=== PATIENT | male | born 1965 | race Two or more races ===

== ENCOUNTER 2024-12-17 05:27 | Emergency (ER) | payer OTHER ==
[~2024-12-17] VITALS: Ht 162.6 cm; Wt 83.0 kg
[2024-12-17] MEDS ORDERED: NEURONTIN300 MG (05:45)
[2024-12-17] MEDS ORDERED: MELOXICAM7.5 MG (05:45)
[2024-12-17] MEDS ORDERED: LACTOBACILLUS ACIDOPHILUS 1 CAP CAP PO STA (06:58)
[2024-12-17] MEDS ORDERED: HYOSCYAMINE SULFATE 0.125 MG TAB.SUBL SL ONE (07:00)
[2024-12-17] MEDS ORDERED: 0.9 % SODIUM CHLORIDE 1,000 ML IV ONE (07:00)
[2024-12-17 07:44] LABS: BASO % 0.4 % (0.1-1.2); EOS # 0.11 (0.04-0.54); EOS % 2.1 % (0.7-7.0); LYMPH # 2.59 (1.18-3.74); LYMPH % 49.7 % (19.3-53.1); MEAN PLATELET VOLUME 10.40 fl (9.4-12.4); MONO # 0.85 (0.24-0.82); NEUT # 1.63 (1.56-6.13); NEUT % 31.3 % (34.0-71.1); RED CELL DISTRIBUTION WIDTH 12.4 % (11.6-14.4)
[2024-12-17 07:50] LABS: MONO % 16.3 % (4.7-12.5)
[2024-12-17 08:08] LABS: URINE APPEARANCE Clear; URINE BILIRRUBIN Negative (NEGATIVE); URINE BLOOD Trace; URINE COLOR Yellow; URINE GLUCOSE Negative (NEGATIVE); URINE KETONE Trace (NEGATIVE); URINE LEUKOCYTE Negative; URINE NITRATE Negative; URINE PROTEIN Negative (NEGATIVE); URINE UROBILINOGEN 0.2 E.U./dl
[2024-12-17 08:09] LABS: URINE EPITHELIAL CELLS 1.5 uL (0.0-38.8); URINE RBC 10.4 uL (0.0-20.8); URINE WBC 2.9 uL (0.0-23.2)
[2024-12-17 08:10] LABS: URINE BACTERIA 0 uL (0.0-1933); URINE CAST 0.29 uL (0.0-1.40)
[2024-12-17 08:12] LABS: ALT/SGPT 24.0 U/L (12-78); AST/SGOT 17.0 U/L (15-37); BILIRUBIN TOTAL 1.13 mg/dL (0.3-1.2); BUN CREA RATIO 12.0 (7.0-25.0); CREATININE SERUM 1.03 mg/dL (0.70-1.30); GFR 73.42; GLOBULINA 4.4 G/DL (2.4-3.5); GLUCOSE FASTING 95.0 mg/dL (65-100); OSMOLALITY SERUM 277.0 MOSM/KG (275-295)
== END 2024-12-17 12:09 | disposition home or self-care (01) ==
LOC: ER 05:27
PROVIDERS: General Practice
DX: R19.7 Diarrhea, unspecified (principal); N50.812 Left testicular pain